=== PATIENT | male | born 1995 | race Caucasian/White ===

== ENCOUNTER 2017-03-20 18:59 | Emergency (ER) ==
[~2017-03-20] VITALS: Ht 172.7 cm; Wt 90.9 kg
[2017-03-20 19:01] VITALS: BP 138/82
[2017-03-20] MEDS ORDERED: DERMABOND TOPICAL SKIN ADHESIVE TOP ONE (19:30)
== END 2017-03-20 19:55 | disposition home or self-care (01) ==
LOC: M ED 18:59
DX: S61.012A Laceration without foreign body of left thumb without damage to nail, initial encounter (principal); W26.0XXA Contact with knife, initial encounter; Y92.099 Unspecified place in other non-institutional residence as the place of occurrence of the external cause; Y93.89 Activity, other specified; Y99.9 Unspecified external cause status

== ENCOUNTER 2017-05-19 08:31 | Emergency (ER) | payer OTHER ==
[2017-05-19] MEDS ORDERED: KETOROLAC 30 MG/ML VIAL (J1885) As Ordered (11:19)
[2017-05-19] MEDS ORDERED: ONDANSETRON 4MG/2ML VIAL (J2405) As Ordered (11:20)
[2017-05-19] MEDS: MECLIZINE 25 MG TABLET PO (11:37)
[2017-05-19] MEDS: ONDANSETRON 4MG/2ML VIAL (J2405) IV (11:37)
[2017-05-19] MEDS: KETOROLAC 30 MG/ML VIAL (J1885) IV (11:38)
[2017-05-19] MEDS: NS 1,000 ML IV (11:41)
== END 2017-05-19 13:24 | disposition home or self-care (01) ==
LOC: M ED 08:31
DX: H81.10 Benign paroxysmal vertigo, unspecified ear (principal); G43.909 Migraine, unspecified, not intractable, without status migrainosus
CPT/HCPCS: J2405

== ENCOUNTER 2018-10-04 09:55 | Emergency (ER) | payer OTHER ==
[~2018-10-04] VITALS: Ht 172.7 cm; Wt 84.5 kg
[~2018-10-04 09:55] MED LIST: IBUP-1022 PO; MECL-68 PO; ZOFR4TAB14 PO
[2018-10-04 09:57] VITALS: BP 122/81
[2018-10-04] MEDS ORDERED: BACT800T5 PO (10:43)
--- NOTE | 2018-10-04 10:45 | REP ---
LEFT FOOT, FOUR VIEWS: HISTORY: Trauma. There is no acute fracture or dislocation. The joint spaces are normal in appearance. IMPRESSION: There is no acute fracture or dislocation. Electronically Signed by Fuentes Marte MD 10/04/2018 10:48 A
== END 2018-10-04 10:50 | disposition home or self-care (01) ==
LOC: M ED 09:55
DX: L03.032 Cellulitis of left toe (principal); X50.1XXA Overexertion from prolonged static or awkward postures, initial encounter; Y92.830 Public park as the place of occurrence of the external cause; Y93.62 Activity, american flag or touch football; Y99.9 Unspecified external cause status; Z77.098 Contact with and (suspected) exposure to other hazardous, chiefly nonmedicinal, chemicals

== ENCOUNTER 2019-06-07 13:27 | Emergency (ER) | payer OTHER ==
[~2019-06-07] VITALS: Ht 172.7 cm; Wt 102.0 kg
[~2019-06-07 13:27] MED LIST changes: +BACT800T5 PO; -MECL-68 PO; +MECL1TAB31 PO
[2019-06-07 15:48] LABS: BASO % 0.6 % (0.0-1.0); EOS # 0.1 10^3/uL (0.0-0.5); EOS % 1.6 % (0.0-3.0); HEMOGLOBIN 14.7 g/dl (13.5-17.5); LYMPH # 1.3 10^3/uL (1.5-5.0); MEAN CORPUSCULAR HEMOGLOBIN 28.2 pg (27.0-33.0); MEAN CORPUSCULAR HGB CONC 32.7 g/dl (32.0-36.5); MEAN CORPUSCULAR VOLUME 86.2 fl (80.0-96.0); MONO # 0.5 10^3/uL (0.0-0.8); MONO % 9.7 % (0.0-5.0); NEUTROPHILS # 3.2 10^3/uL (1.5-8.5); NEUTROPHILS % 61.5 % (36.0-66.0); PLATELET COUNT, AUTOMATED 171 10^3/uL (150-450); RED BLOOD COUNT 5.22 10^6/uL (4.30-6.10); WHITE BLOOD COUNT 5.2 10^3/uL (4.0-10.0)
[2019-06-07] MEDS ORDERED: ISOVUE-370 76% 100ML VIAL (Q9967) As Ordered ONE (15:48)
--- NOTE | 2019-06-07 16:21 | REP ---
Clinical: Abdominal trauma and hematuria. Technique: Axial contrast enhanced and delayed images from the lung bases to the pubic symphysis using 100 ml Isovue 370 intravenous contrast material. Coronal and sagittal re-formations obtained. Findings: Lung bases are clear. Visualized heart and pericardium normal. No evidence for solid organ injury. Liver, spleen, pancreas, gallbladder, bilateral adrenal glands and kidneys are normal. The enteric system is without obstruction or acute inflammatory process. Normal terminal ileum and appendix are identified in the right lower quadrant. Colonic and sigmoid diverticulosis noted without acute diverticulitis. Pelvis demonstrates normal bladder and age appropriate prostate/seminal vesicles. No ascites. No free air. No significant adenopathy. Abdominal aorta and vasculature are normal. Osseous structures are intact. Impression: No evidence for solid organ injury. No acute abdominopelvic pathology. Electronically Signed by Amos Waters MD 06/07/2019 04:13 P
[2019-06-07 16:32] VITALS: BP 131/76
== END 2019-06-07 16:54 | disposition home or self-care (01) ==
LOC: M ED 13:27
DX: R31.9 Hematuria, unspecified (principal); X50.0XXA Overexertion from strenuous movement or load, initial encounter; Y92.9 Unspecified place or not applicable; Y93.B3 Activity, free weights; Y99.9 Unspecified external cause status
CPT/HCPCS: 74177; 80047; 81001; 85025; 86850; 86900; 86901; 99284; Q9967

== ENCOUNTER 2019-06-09 11:17 | Emergency (ER) | payer OTHER ==
[~2019-06-09] VITALS: Ht 172.7 cm; Wt 102.9 kg
[2019-06-09 14:19] LABS: BASO % 0.3 % (0.0-1.0); EOS # 0.1 10^3/uL (0.0-0.5); HEMATOCRIT 43.9 % (42.0-52.0); HEMOGLOBIN 14.5 g/dl (13.5-17.5); LYMPH # 1.5 10^3/uL (1.5-5.0); LYMPH % 25.9 % (24.0-44.0); MEAN CORPUSCULAR HEMOGLOBIN 28.2 pg (27.0-33.0); MEAN CORPUSCULAR VOLUME 85.4 fl (80.0-96.0); MONO # 0.6 10^3/uL (0.0-0.8); MONO % 9.5 % (0.0-5.0); NEUTROPHILS # 3.6 10^3/uL (1.5-8.5); PLATELET COUNT, AUTOMATED 169 10^3/uL (150-450); RED BLOOD COUNT 5.14 10^6/uL (4.30-6.10); WHITE BLOOD COUNT 5.9 10^3/uL (4.0-10.0)
[2019-06-09 15:22] VITALS: BP 140/60
[2019-06-09 17:14] LABS: CHLAMYDIA DNA AMPLIFICATION NEGATIVE (NEGATIVE); GC DNA AMPLIFICATION NEGATIVE (NEGATIVE)
== END 2019-06-09 15:30 | disposition home or self-care (01) ==
LOC: M ED 11:17
DX: N39.9 Disorder of urinary system, unspecified (principal); R30.0 Dysuria; R31.21 Asymptomatic microscopic hematuria

== ENCOUNTER 2020-02-08 19:12 | Emergency (ER) | payer OTHER ==
[~2020-02-08] VITALS: Ht 172.7 cm; Wt 101.7 kg
[2020-02-08 19:13] VITALS: BP 124/76
[2020-02-08] MEDS ORDERED: NAPR250T4 PO (19:23)
[2020-02-08] MEDS ORDERED: DICL75TA PO (20:26)
[2020-02-08] MEDS ORDERED: CYCL5TAB PO (20:26)
== END 2020-02-08 20:35 | disposition home or self-care (01) ==
LOC: M ED 19:12
DX: G89.29 Other chronic pain (principal); M54.5 Low back pain

== ENCOUNTER 2020-07-31 18:24 | Emergency (ER) | payer OTHER ==
[~2020-07-31] VITALS: Ht 172.7 cm; Wt 97.7 kg
[~2020-07-31 18:24] MED LIST changes: +CYCL5TAB PO; +DICL75TA PO; +NAPR-849 PO
[2020-07-31] MEDS ORDERED: KETOROLAC TROMETHAMINE 10 MG TAB PO ONE (21:20)
[2020-07-31] MEDS ORDERED: methocarbamoL 750 MG TAB PO ONE (21:20)
[2020-07-31] MEDS ORDERED: ROBA750T4 PO (22:13)
[2020-07-31 22:29] VITALS: BP 147/81
== END 2020-07-31 22:32 | disposition home or self-care (01) ==
LOC: M ED 18:24
DX: M62.830 Muscle spasm of back (principal); M54.9 Dorsalgia, unspecified

== ENCOUNTER → 2021-01-25 | Outpatient (REF) ==
[~2021-01-25] MED LIST changes: +ROBA750T4 PO
--- NOTE | 2021-01-25 11:08 | REP ---
INDICATION: SOB COMPARISON: None. TECHNIQUE: AP, lateral, coned-down views of the lumbar spine. FINDINGS: Three views of the lumbosacral spine demonstrate satisfactory alignment and lordosis without acute fracture / compression injury or subluxation. IMPRESSION: 1. Age-appropriate examination. 2. If the patient remains symptomatic consider MRI for further investigation. <Electronically signed by Amos Waters > 01/25/21 [id number]
--- NOTE | 2021-01-25 11:09 | REP ---
INDICATION: SOB COMPARISON: None. TECHNIQUE: AP, lateral, bilateral oblique views. FINDINGS: No acute fracture or dislocation. Skeletal structures and joint spaces are intact and normal. Ankle mortise appears stable. No subcutaneous emphysema or radiodense foreign body. IMPRESSION: Normal right ankle radiograph series. <Electronically signed by Amos Waters > 01/25/21 [id number]
--- NOTE | 2021-01-25 11:10 | REP ---
INDICATION: DISABILITY COMPARISON: None. TECHNIQUE: Mora and bilateral lateral views of the nasal bones. FINDINGS: Nasal septum is midline. Nasal bones appear intact without acute fracture or dislocation. Overlying soft tissues are grossly unremarkable. IMPRESSION: No acute nasal bone fracture identified. <Electronically signed by Amos Waters > 01/25/21 1101
== END ==
LOC: M PLAIMG 10:25
PROVIDERS: ATTEND Internal Medicine
DX: R06.02 Shortness of breath (principal); M54.9 Dorsalgia, unspecified; M25.571 Pain in right ankle and joints of right foot